=== PATIENT | male | born 1995 | race Caucasian/White ===

== ENCOUNTER 2017-09-19 09:49 | Emergency (ER) | payer MEDICAID ==
[~2017-09-19] VITALS: Ht 177.8 cm; Wt 76.0 kg
[2017-09-19 09:59] VITALS: BP 122/74
[2017-09-19] MEDS ORDERED: KETOROLAC 30 MG/1 ML IM ONE (10:30)
[2017-09-19] MEDS ORDERED: LORazepam 2 MG/ML, 1ML ONE (10:39)
[2017-09-19] MEDS ORDERED: KETOROLAC 30 MG/1 ML ONE (10:45)
== END 2017-09-19 10:56 | disposition home or self-care (01) ==
LOC: ED 10:53
DX: S76.811A Strain of other specified muscles, fascia and tendons at thigh level, right thigh, initial encounter (principal); X58.XXXA Exposure to other specified factors, initial encounter; Y93.89 Activity, other specified; Y92.89 Other specified places as the place of occurrence of the external cause; Y99.9 Unspecified external cause status
CPT/HCPCS: 96372; 99283; J1885

== ENCOUNTER 2017-10-30 05:38 | Emergency (ER) | payer MEDICAID ==
[~2017-10-30] VITALS: Ht 177.8 cm; Wt 68.9 kg
[2017-10-30 05:40] VITALS: BP 144/78
== END 2017-10-30 05:56 | disposition left against medical advice (07) ==
LOC: ED 05:50
DX: M79.604 Pain in right leg (principal); Z53.21 Procedure and treatment not carried out due to patient leaving prior to being seen by health care provider